=== PATIENT | female | born 2000 | race Hispanic/Latino ===

== ENCOUNTER 2021-10-08 17:00 | Emergency (ER) | payer OTHER ==
[~2021-10-08] VITALS: Ht 149.9 cm; Wt 58.1 kg
[2021-10-08 17:28] LABS: BASOPHILS % (AUTO) 0.5 % (0.0-5.0); EOSINOPHILS % (AUTO) 0.2 % (0.0-8.0); HEMATOCRIT 41.7 % (36-48); LYMPHOCYTES % (AUTO) 14.7 % (21.0-51.0); MEAN CORPUSCULAR HEMOGLOBIN 29.6 pg (27.0-33.0); MEAN CORPUSCULAR HGB CONC 34.5 g/dL (32.0-36.0); MEAN CORPUSCULAR VOLUME 85.6 fL (80-100); MONOCYTES % (AUTO) 5.4 % (3.0-13.0); NEUTROPHILS % (AUTO) 78.7 % (40.0-77.0); PLATELET COUNT (AUTO) 273 K/uL (130-400); RED BLOOD CELL COUNT(AUTO) 4.87 MIL/uL (4.00-5.50); RED CELL DISTRIBUTION WIDTH 12.3 % (11.0-15.5); WHITE BLOOD COUNT (AUTO) 15.5 K/uL (4.8-10.8)
[2021-10-08 17:38] LABS: CREATININE 0.8 mg/dL (0.5-1.5); POTASSIUM 3.7 mmol/L (3.5-5.1)
[2021-10-08 17:42] VITALS: BP 91/57
[2021-10-08] MEDS ORDERED: ACETAMINOPHEN 500 MG TABLET PO ONE (18:00)
[2021-10-08 18:06] LABS: ALBUMIN 4.2 g/dL (3.5-5.0); BILIRUBIN,TOTAL 0.4 mg/dL (0.2-1.0); TOTAL PROTEIN, SERUM 7.7 g/dL (6.0-8.3)
[2021-10-08 18:07] LABS: APPEARANCE,URINE CLEAR (CLEAR); BILIRUBIN,URINE SMALL (NEGATIVE); COLOR,URINE YELLOW (YELLOW); GLUCOSE, URINE (UA) NEGATIVE (NEGATIVE); KETONES,URINE >=80 mg/dL (NEGATIVE); LEUKOCYTE ESTERASE ,URINE NEGATIVE (NEGATIVE); NITRATE,URINE NEGATIVE (NEGATIVE); OCCULT BLOOD,URINE NEGATIVE (NEGATIVE); PROTEIN,URINE NEGATIVE (NEGATIVE); UROBILINOGEN,URINE 0.2 mg/dL (0.2-1.0)
[2021-10-08 18:14] LABS: HCG,QUAL RESULT POSITIVE (NEGATIVE)
[2021-10-08] MEDS ORDERED: PNV1TABL17 PO (19:13)
== END 2021-10-08 19:29 | disposition home or self-care (01) ==
LOC: EDH 17:00
DX: O26.891 Other specified pregnancy related conditions, first trimester (principal); R10.30 Lower abdominal pain, unspecified; M54.50 Low back pain, unspecified; Z3A.01 Less than 8 weeks gestation of pregnancy
CPT/HCPCS: 36415; 76801; 80053; 81003; 81025; 84702; 85025

== ENCOUNTER 2021-11-13 10:51 | Emergency (ER) | payer MEDICAID, OTHER ==
[~2021-11-13] VITALS: Ht 152.4 cm; Wt 57.2 kg
[~2021-11-13 10:51] MED LIST: PNV1TABL17 PO
[2021-11-13 11:18] LABS: BASOPHILS % (AUTO) 0.6 % (0.0-5.0); EOSINOPHILS % (AUTO) 0.4 % (0.0-8.0); HEMATOCRIT 41.4 % (36-48); LYMPHOCYTES % (AUTO) 17.1 % (21.0-51.0); MEAN CORPUSCULAR HEMOGLOBIN 29.7 pg (27.0-33.0); MEAN CORPUSCULAR VOLUME 84.8 fL (80-100); MONOCYTES % (AUTO) 5.5 % (3.0-13.0); NEUTROPHILS % (AUTO) 75.7 % (40.0-77.0); PLATELET COUNT (AUTO) 261 K/uL (130-400); RED BLOOD CELL COUNT(AUTO) 4.88 MIL/uL (4.00-5.50); RED CELL DISTRIBUTION WIDTH 12.7 % (11.0-15.5); WHITE BLOOD COUNT (AUTO) 15.9 K/uL (4.8-10.8)
[2021-11-13 11:20] LABS: APPEARANCE,URINE CLEAR (CLEAR); BILIRUBIN,URINE NEGATIVE (NEGATIVE); COLOR,URINE YELLOW (YELLOW); GLUCOSE, URINE (UA) NEGATIVE (NEGATIVE); KETONES,URINE NEGATIVE (NEGATIVE); LEUKOCYTE ESTERASE ,URINE NEGATIVE (NEGATIVE); NITRATE,URINE NEGATIVE (NEGATIVE); OCCULT BLOOD,URINE NEGATIVE (NEGATIVE); PH,URINE 7.5 (5.0-8.0); PROTEIN,URINE NEGATIVE (NEGATIVE); UROBILINOGEN,URINE 0.2 mg/dL (0.2-1.0)
[2021-11-13 11:33] LABS: CREATININE 0.7 mg/dL (0.5-1.5); POTASSIUM 3.5 mmol/L (3.5-5.1)
[2021-11-13 12:00] LABS: ALBUMIN 3.5 g/dL (3.5-5.0); TOTAL PROTEIN, SERUM 7.3 g/dL (6.0-8.3)
[2021-11-13 12:52] VITALS: BP 104/67
== END 2021-11-13 13:00 | disposition home or self-care (01) ==
LOC: EDH 10:51
DX: O26.891 Other specified pregnancy related conditions, first trimester (principal); R10.84 Generalized abdominal pain; Z3A.12 12 weeks gestation of pregnancy
CPT/HCPCS: 36415; 76801; 80053; 81003; 84702; 84703; 85025

== ENCOUNTER 2021-12-18 11:28 | Emergency (ER) | payer MEDICAID, OTHER ==
[~2021-12-18] VITALS: Ht 152.4 cm; Wt 59.0 kg
[2021-12-18 11:30] VITALS: BP 115/59
[2021-12-18 12:23] LABS: BASOPHILS % (AUTO) 0.5 % (0.0-5.0); EOSINOPHILS % (AUTO) 0.6 % (0.0-8.0); HEMATOCRIT 36.2 % (36-48); LYMPHOCYTES % (AUTO) 14.9 % (21.0-51.0); MEAN CORPUSCULAR HEMOGLOBIN 30.1 pg (27.0-33.0); MEAN CORPUSCULAR HGB CONC 34.5 g/dL (32.0-36.0); MEAN CORPUSCULAR VOLUME 87.2 fL (79-99); MONOCYTES % (AUTO) 5.4 % (3.0-13.0); NEUTROPHILS % (AUTO) 77.8 % (40.0-77.0); PLATELET COUNT (AUTO) 252 K/uL (130-400); RED BLOOD CELL COUNT(AUTO) 4.15 MIL/uL (4.00-5.50); RED CELL DISTRIBUTION WIDTH 13.3 % (11.0-15.5); WHITE BLOOD COUNT (AUTO) 15.4 K/uL (4.8-10.8)
[2021-12-18 12:30] LABS: CREATININE 0.7 mg/dL (0.5-1.5); POTASSIUM 3.7 mmol/L (3.5-5.1)
[2021-12-18 12:35] LABS: TOTAL PROTEIN, SERUM 6.6 g/dL (6.0-8.3)
[2021-12-18 12:59] LABS: APPEARANCE,URINE CLOUDY (CLEAR); BILIRUBIN,URINE NEGATIVE (NEGATIVE); COLOR,URINE YELLOW (YELLOW); GLUCOSE, URINE (UA) NEGATIVE (NEGATIVE); KETONES,URINE NEGATIVE (NEGATIVE); LEUKOCYTE ESTERASE ,URINE NEGATIVE (NEGATIVE); NITRATE,URINE NEGATIVE (NEGATIVE); OCCULT BLOOD,URINE NEGATIVE (NEGATIVE); PH,URINE 8.5 (5.0-8.0); PROTEIN,URINE NEGATIVE (NEGATIVE); UROBILINOGEN,URINE 0.2 mg/dL (0.2-1.0)
== END 2021-12-18 15:46 | disposition home or self-care (01) ==
LOC: EDH 11:28
DX: O26.892 Other specified pregnancy related conditions, second trimester (principal); K64.8 Other hemorrhoids; Z3A.17 17 weeks gestation of pregnancy
CPT/HCPCS: 36415; 80053; 81003; 85025

== ENCOUNTER 2022-04-11 08:03 | Emergency (ER) | payer MEDICAID, OTHER ==
[~2022-04-11] VITALS: Ht 149.9 cm; Wt 70.8 kg
[2022-04-11 08:04] VITALS: BP 94/65
[2022-04-11 10:29] LABS: BASOPHILS % (AUTO) 0.5 % (0.0-5.0); EOSINOPHILS % (AUTO) 0.8 % (0.0-8.0); HEMATOCRIT 37.5 % (36-48); LYMPHOCYTES % (AUTO) 15.5 % (21.0-51.0); MEAN CORPUSCULAR HEMOGLOBIN 30.3 pg (27.0-33.0); MEAN CORPUSCULAR HGB CONC 34.9 g/dL (32.0-36.0); MEAN CORPUSCULAR VOLUME 86.8 fL (79-99); MONOCYTES % (AUTO) 6.5 % (3.0-13.0); NEUTROPHILS % (AUTO) 75.5 % (40.0-77.0); PLATELET COUNT (AUTO) 274 K/uL (130-400); RED BLOOD CELL COUNT(AUTO) 4.32 MIL/uL (4.00-5.50); RED CELL DISTRIBUTION WIDTH 11.7 % (11.0-15.5); WHITE BLOOD COUNT (AUTO) 11.6 K/uL (4.8-10.8)
[2022-04-11 10:40] LABS: CREATININE 0.6 mg/dL (0.5-1.5); POTASSIUM 3.6 mmol/L (3.5-5.1)
[2022-04-11 10:44] LABS: ALBUMIN 2.3 g/dL (3.5-5.0); MAGNESIUM 1.6 mg/dL (1.80-2.40); TOTAL PROTEIN, SERUM 6.9 g/dL (6.0-8.3)
== END 2022-04-11 13:41 | disposition left against medical advice (07) ==
LOC: EDH 08:03
DX: O26.892 Other specified pregnancy related conditions, second trimester (principal); M79.605 Pain in left leg; M79.604 Pain in right leg; Z3A.20 20 weeks gestation of pregnancy; Z53.21 Procedure and treatment not carried out due to patient leaving prior to being seen by health care provider; Z20.822 Contact with and (suspected) exposure to COVID-19
CPT/HCPCS: 87635; 83735; 80053; 85025; 87804 ×2; 36415; C9803

== ENCOUNTER 2022-04-27 11:49 | Emergency (ER) | payer OTHER ==
[~2022-04-27] VITALS: Ht 152.4 cm; Wt 71.7 kg
[2022-04-27] MEDS ORDERED: BACI30OI6 TP (12:55)
[2022-04-27] MEDS ORDERED: BACITRACIN 1 EACH PACKET TP ONE (13:17)
[2022-04-27 13:21] VITALS: BP 125/84
[2022-04-27] MEDS ORDERED: BACITRACIN 28.4 GM OINT TP ONE (13:30)
== END 2022-04-27 13:25 | disposition home or self-care (01) ==
LOC: EDH 11:49
DX: L60.0 Ingrowing nail (principal); Z79.2 Long term (current) use of antibiotics; Z79.899 Other long term (current) drug therapy
CPT/HCPCS: 11750

== ENCOUNTER 2022-04-30 05:56 | Observation (INO) | payer OTHER ==
[~2022-04-30] VITALS: Ht 149.9 cm; Wt 72.6 kg
[~2022-04-30 05:56] MED LIST changes: +BACI30OI6 TP
[2022-04-30 05:57] VITALS: BP 112/77
[2022-04-30] MEDS ORDERED: LACTATED RINGERS 1000ML 1,000 ML IV SCH ×2 (06:30→07:30)
[2022-04-30 06:31] LABS: APPEARANCE,URINE CLEAR (CLEAR); BILIRUBIN,URINE NEGATIVE (NEGATIVE); COLOR,URINE LIGHT-YELLOW (YELLOW); GLUCOSE, URINE (UA) NEGATIVE (NEGATIVE); KETONES,URINE NEGATIVE (NEGATIVE); LEUKOCYTE ESTERASE ,URINE NEGATIVE Leu/uL (NEGATIVE); NITRATE,URINE NEGATIVE (NEGATIVE); OCCULT BLOOD,URINE NEGATIVE (NEGATIVE); PH,URINE 6.5 (5.0-8.0); PROTEIN,URINE NEGATIVE (NEGATIVE); UROBILINOGEN,URINE 0.2 mg/dL (0.2-1.0)
[2022-04-30 06:39] LABS: AMPHET/METH SCREEN,URINE NEGATIVE (NEGATIVE); BARBITURATE SCREEN, URINE NEGATIVE (NEGATIVE); BENZODIAZEPINES SCREEN,URINE NEGATIVE (NEGATIVE); CANNABINOID SCREEN,URINE NEGATIVE (NEGATIVE); COCAINE SCREEN,URINE NEGATIVE (NEGATIVE); OPIATE SCREEN,URINE NEGATIVE (NEGATIVE); PHENCYCLIDINE SCREEN,URINE NEGATIVE (NEGATIVE)
[2022-04-30] MEDS ORDERED: TERBUTALINE SULFATE VIAL 1MG/ML SQ SCH (07:30)
== END 2022-04-30 08:50 | disposition home or self-care (01) ==
LOC: EDH 05:56 → LDH 06:18
PROVIDERS: ADMIT Obstetrics & Gynecology; ATTEND Obstetrics & Gynecology
DX: O62.9 Abnormality of forces of labor, unspecified (principal); O26.893 Other specified pregnancy related conditions, third trimester; R10.30 Lower abdominal pain, unspecified; R10.2 Pelvic and perineal pain; Z3A.35 35 weeks gestation of pregnancy; Z79.899 Other long term (current) drug therapy
CPT/HCPCS: 96372; 59025; 96360; 96361; 80305; 81003; G0378 ×3; G0379; J7120 ×2; J3105

== ENCOUNTER → 2022-06-07 | Emergency (ER) | payer MEDICAID, OTHER | LOC: EDH 20:56 | DX: N64.4 Mastodynia (principal); Z53.21 Procedure and treatment not carried out due to patient leaving prior to being seen by health care provider ==